=== PATIENT | female | born 1955 | race Caucasian/White ===

== ENCOUNTER 2023-02-27 12:33 | Inpatient (IN) | payer MEDICARE, BC ==
[~2023-02-27] VITALS: Ht 167.6 cm; Wt 73.0 kg
[2023-02-27 14:38] LABS: *BILIRUBIN,URIN NEGATIVE (NEGATIVE); *BLOOD, URINE NEGATIVE (NEGATIVE); *CLARITY,URINE CLEAR (CLEAR); *COLOR,URINE YELLOW (YELLOW); *KETONES,URINE NEGATIVE (NEGATIVE); *PROTEIN,URINE NEGATIVE (NEGATIVE); *UROBILINOGEN,URINE 0.2 E.U./dl (NORMAL); LEUKOCYTE ESTERASE ,URINE NEGATIVE (NEGATIVE); NITRITE, URINE NEGATIVE (NEGATIVE); PH,URINE 6.5 (5.0-8.0); UGLUCOSE NEGATIVE (NEGATIVE)
[2023-02-27 14:50] LABS: *URINE HCG, QUAL NEGATIVE (NEGATIVE)
[2023-02-27] MEDS ORDERED: ACETAMINOPHEN 325 MG TABLET PO PRN (15:30)
[2023-02-27] MEDS ORDERED: MAG HYDROX/AL HYDROX/SIMETH 30 ML LIQUID UDC PO PRN (15:30)
[2023-02-27] MEDS ORDERED: MAGNESIUM HYDROXIDE 30 ML LIQUID UDC PO PRN (15:30)
[2023-02-27 16:10] VITALS: BP 131/90; TEMP 98.1; O2SAT 99
[2023-02-27 19:48] VITALS: BP 121/88; TEMP 98.1; O2SAT 97
[2023-02-27] MEDS: TEMAZEPAM 7.5 MG CAPSULE PO PRN (21:09)
[2023-02-28 07:30] VITALS: BP 117/75; TEMP 98.2; O2SAT 98
[2023-02-28] MEDS: OLANZAPINE 5 MG TABLET PO SCH ×2 (10:40→16:29)
[2023-02-28 16:21] VITALS: BP 133/79; TEMP 98; O2SAT 98
[2023-02-28] MEDS ORDERED: BUSP10TA3 PO (17:14)
[2023-02-28 19:43] VITALS: BP 126/74; TEMP 98.1; O2SAT 98
[2023-02-28] MEDS: TEMAZEPAM 7.5 MG CAPSULE PO PRN (21:01)
[2023-03-01 08:00] VITALS: BP 136/94; TEMP 98.1; O2SAT 96
[2023-03-01] MEDS: OLANZAPINE 5 MG TABLET PO SCH ×2 (08:29→16:54)
[2023-03-01 16:00] VITALS: BP 134/90; TEMP 98.6; O2SAT 99
[2023-03-01 20:00] VITALS: BP 144/86; TEMP 97.9; O2SAT 99
[2023-03-02 07:30] VITALS: BP 133/82; TEMP 98.2; O2SAT 96
[2023-03-02] MEDS: OLANZAPINE 5 MG TABLET PO SCH ×2 (08:55→17:07)
[2023-03-02] MEDS: LORAZEPAM 0.5 MG TABLET PO PRN ×2 (11:34→23:47)
[2023-03-02 16:00] VITALS: BP 152/93; TEMP 97.9; O2SAT 99
[2023-03-02 20:00] VITALS: BP 125/89; TEMP 97.4; O2SAT 99
[2023-03-03 07:30] VITALS: BP 155/94; TEMP 97.6; O2SAT 97
[2023-03-03] MEDS: OLANZAPINE 5 MG TABLET PO SCH ×3 (09:00→17:00)
[2023-03-03 16:27] VITALS: BP 131/79; TEMP 98; O2SAT 99
[2023-03-03 20:00] VITALS: BP 124/84; TEMP 97.7; O2SAT 99
[2023-03-04 07:51] VITALS: BP 116/74; TEMP 98.1; O2SAT 99
[2023-03-04] MEDS: OLANZAPINE 5 MG TABLET PO SCH (08:27)
[2023-03-04] MEDS: OLANZAPINE ZYDIS 5 MG TAB.RAPDIS PO SCH (16:34)
[2023-03-04 16:37] VITALS: BP 121/85; TEMP 98; O2SAT 99
[2023-03-04 20:00] VITALS: BP 128/67; TEMP 97.8; O2SAT 97
[2023-03-05 08:18] VITALS: BP 119/75; TEMP 98.2; O2SAT 98
[2023-03-05] MEDS: OLANZAPINE ZYDIS 5 MG TAB.RAPDIS PO SCH ×2 (09:00→16:29)
[2023-03-05 16:09] VITALS: TEMP 98.1; O2SAT 100
[2023-03-05 20:00] VITALS: BP 132/81; TEMP 97.8; O2SAT 96
[2023-03-06 07:56] VITALS: BP 124/79; TEMP 98.2; O2SAT 98
[2023-03-06] MEDS: OLANZAPINE ZYDIS 5 MG TAB.RAPDIS PO SCH ×3 (08:37→17:39)
[2023-03-06] MEDS: ENSURE ENLIVE (VAN) 240 ML LIQUID PO SCH (17:00)
[2023-03-06 20:00] VITALS: BP 122/83; TEMP 97.6; O2SAT 98
[2023-03-06] MEDS ORDERED: OLANZAPINE ZYDIS 5 MG TAB.RAPDIS PO SCH (21:00)
[2023-03-06] MEDS: TEMAZEPAM 7.5 MG CAPSULE PO PRN (22:54)
[2023-03-07 07:56] VITALS: BP 148/86; TEMP 98.2; O2SAT 96
[2023-03-07] MEDS: OLANZAPINE ZYDIS 5 MG TAB.RAPDIS PO SCH (08:27)
[2023-03-07] MEDS: ENSURE ENLIVE (VAN) 240 ML LIQUID PO SCH ×2 (08:27→17:00)
[2023-03-07] MEDS ORDERED: OLANZAPINE 5 MG TABLET PO ONE (09:00)
[2023-03-07 15:37] VITALS: BP 125/89; TEMP 98; O2SAT 98
[2023-03-07 20:03] VITALS: BP 140/82; TEMP 98.2; O2SAT 95
[2023-03-07] MEDS: OLANZAPINE 5 MG TABLET PO SCH (20:59)
[2023-03-08 07:55] VITALS: BP 127/82; TEMP 98.4; O2SAT 98
[2023-03-08] MEDS: ENSURE ENLIVE (VAN) 240 ML LIQUID PO SCH ×2 (08:00→17:00)
[2023-03-08] MEDS: OLANZAPINE 5 MG TABLET PO SCH ×2 (08:45→17:14)
[2023-03-08] MEDS: LORAZEPAM 0.5 MG TABLET PO PRN (13:51)
[2023-03-08] MEDS ORDERED: OLANZAPINE 10 MG VIAL IM ONE (18:30)
== END 2023-03-08 19:55 | DRG 885 ==
LOC: ER 12:33 → GPS 14:59
PROVIDERS: ADMIT Psychiatry & Neurology Psychiatry; ATTEND Internal Medicine
DX: F29 Unspecified psychosis not due to a substance or known physiological condition (principal); F03.92 Unspecified dementia, unspecified severity, with psychotic disturbance; F03.93 Unspecified dementia, unspecified severity, with mood disturbance; F20.0 Paranoid schizophrenia; F39 Unspecified mood [affective] disorder; Z73.6 Limitation of activities due to disability; Z20.822 Contact with and (suspected) exposure to COVID-19
CPT/HCPCS: 84703; J2358